=== PATIENT | female | born 1985 | race African-American/Black ===

== ENCOUNTER 2016-08-10 07:59 | Emergency (ER) | payer OTHER ==
[~2016-08-10] VITALS: Ht 162.6 cm; Wt 84.0 kg
[2016-08-10] MEDS ORDERED: SERT50TA12 PO (08:09)
[2016-08-10] MEDS ORDERED: LEVE250T55 PO (08:09)
[2016-08-10] MEDS ORDERED: NAPR250T2 PO (08:09)
[2016-08-10] MEDS ORDERED: LORA0.5T2 PO (08:09)
[2016-08-10] MEDS ORDERED: HYDROCODONE/ACETAMINOPHEN 5-325 MG TABLET PO ONE (08:45)
[2016-08-10 09:49] VITALS: BP 139/58
== END 2016-08-10 10:23 | disposition home or self-care (01) ==
LOC: EMS 08:02
DX: S83.92XA Sprain of unspecified site of left knee, initial encounter (principal); J45.909 Unspecified asthma, uncomplicated; F17.210 Nicotine dependence, cigarettes, uncomplicated; F12.90 Cannabis use, unspecified, uncomplicated; W18.40XA Slipping, tripping and stumbling without falling, unspecified, initial encounter; Y93.89 Activity, other specified; Y92.89 Other specified places as the place of occurrence of the external cause; Y99.8 Other external cause status
CPT/HCPCS: 29505; 99284; 99406

== ENCOUNTER 2022-07-09 16:58 | Emergency (ER) | payer OTHER ==
[~2022-07-09] VITALS: Ht 165.1 cm; Wt 70.5 kg
[~2022-07-09 16:58] MED LIST: LEVE250T4 PO; LORA-999 PO; NAPR-1197 PO; SERT-158 PO
[2022-07-09] MEDS ORDERED: IBUPROFEN 600 MG TABLET PO ONE (17:45)
[2022-07-09] MEDS ORDERED: CORTSUSP AD ×2 (17:46→19:47)
[2022-07-09] MEDS ORDERED: IBUP-1492 PO ×2 (17:46→19:47)
[2022-07-09 17:57] VITALS: BP 127/82
== END 2022-07-09 17:59 | disposition home or self-care (01) ==
LOC: EMS 16:58
DX: H60.91 Unspecified otitis externa, right ear (principal); F41.9 Anxiety disorder, unspecified; J45.909 Unspecified asthma, uncomplicated; F32.A Depression, unspecified; F17.210 Nicotine dependence, cigarettes, uncomplicated; F12.90 Cannabis use, unspecified, uncomplicated; Z98.890 Other specified postprocedural states
CPT/HCPCS: 99283

== ENCOUNTER 2022-08-25 12:17 | Emergency (ER) | payer OTHER ==
[~2022-08-25] VITALS: Ht 157.5 cm; Wt 68.2 kg
[~2022-08-25 12:17] MED LIST changes: +CORTSUSP AD; +IBUP-1492 PO; -NAPR-1197 PO
[2022-08-25 12:36] VITALS: BP 140/86
[2022-08-25] MEDS ORDERED: CEPHALEXIN MONOHYDRATE 500 MG CAPSULE PO ONE (13:00)
[2022-08-25] MEDS ORDERED: ACETAMINOPHEN/CODEINE 300-30 MG TABLET PO ONE (13:00)
[2022-08-25] MEDS ORDERED: IBUP-1554 PO (13:05)
[2022-08-25] MEDS ORDERED: ACET-2080 PO (13:05)
[2022-08-25] MEDS ORDERED: CEPH-558 PO (13:05)
[2022-08-25] MEDS ORDERED: DOXY-354 PO (13:05)
[2022-08-25] MEDS ORDERED: MICO24CM2 VG (13:05)
== END 2022-08-25 13:34 | disposition home or self-care (01) ==
LOC: EMS 12:21
DX: H00.015 Hordeolum externum left lower eyelid (principal); H00.15 Chalazion left lower eyelid; H00.12 Chalazion right lower eyelid; F41.9 Anxiety disorder, unspecified; J45.909 Unspecified asthma, uncomplicated; F32.A Depression, unspecified; F17.210 Nicotine dependence, cigarettes, uncomplicated; F12.90 Cannabis use, unspecified, uncomplicated; Z98.890 Other specified postprocedural states
CPT/HCPCS: 99283